=== PATIENT | female | born 1955 | race Caucasian/White ===

== ENCOUNTER → 2024-10-31 | Outpatient (CLI) | payer MEDICARE | LOC: LAB SHORT 17:08 → LAB 17:08 | DX: N39.0 Urinary tract infection, site not specified (principal) | CPT/HCPCS: 87077; 87086; 87186 ==

== ENCOUNTER 2024-11-06 09:14 | Day surgery (SDC) | payer MEDICARE ==
[~2024-11-06] VITALS: Ht 157.5 cm; Wt 66.3 kg
[~2024-11-06 09:14] MED LIST: BUPR75; ESCI10; PANT20; TRAZ50
[2024-11-06] MEDS ORDERED: ESOM20 (09:30)
[2024-11-06] MEDS ORDERED: CALCIUM CARBON500 M1 (09:30)
[2024-11-06] MEDS ORDERED: ESCI20 (09:30)
[2024-11-06] MEDS ORDERED: [UNRECOGNIZED DRUG - OTHER] (09:30)
[2024-11-06] MEDS ORDERED: EUTHYROX175 MCG (09:31)
[2024-11-06] MEDS ORDERED: SEMAGLUTID1 MG/0.2 M (09:32)
[2024-11-06] MEDS ORDERED: BUPR150ER (09:33)
--- NOTE | 2024-11-06 09:53 | NUR ---
11/06/24 0953 Fide Baldwin VITAL SIGNS 0856 AND 0857 CHARTED ON INCORRECT PT ERROR LSX
[2024-11-06 11:43] VITALS: BP 122/73
== END 2024-11-06 11:30 | disposition home or self-care (01) ==
LOC: ORSCSDS 09:14
PROVIDERS: Specialist
PROC: 0DB58ZX Excision of Esophagus, Via Natural or Artificial Opening Endoscopic, Diagnostic (ICD-10-PCS; principal; 2024-11-06 10:45)
DX: K22.70 Barrett's esophagus without dysplasia (principal); Z80.0 Family history of malignant neoplasm of digestive organs; Z98.84 Bariatric surgery status; K21.00 Gastro-esophageal reflux disease with esophagitis, without bleeding; K44.9 Diaphragmatic hernia without obstruction or gangrene; K64.8 Other hemorrhoids; Z79.899 Other long term (current) drug therapy
CPT/HCPCS: 88305; J2704; J7120